=== PATIENT | male | born 1955 | race Caucasian/White ===

== ENCOUNTER 2021-05-22 12:28 | Inpatient (IN) | payer OTHER, MEDICAID ==
[~2021-05-22] VITALS: Ht 177.8 cm; Wt 81.0 kg
[2021-05-22 13:18] LABS: Basophils # (auto) 0 10 ^3/uL (0-0.2); Basophils % (auto) 0.2 % (0.0-2.0); Eosinophils # (auto) 0.1 10 ^3/uL (0-0.8); Lymphocytes # (auto) 1.1 10 ^3/uL (0.4-5.4); Lymphocytes % (auto) 11.5 % (10.0-50.0); Monocytes # (auto) 1.4 10 ^3/uL (0-1.3)
[2021-05-22 13:19] LABS: Eosinophils % (auto) 0.8 % (0.0-7.0); Hematocrit 40.9 % (41.0-53.0); Hemoglobin 14.1 g/dL (13.5-17.5); Mean Corpuscular Hemoglobin 33.5 pg (28.0-32.0); Mean Corpuscular Hgb Conc. 34.4 g/dL (32.0-36.0); Mean Corpuscular Volume 97.5 fL (80.0-100.0); Monocytes % (auto) 14.4 % (0.0-12.0); Neutrophils # (auto) 7.3 10 ^3/uL (1.6-8.6); Neutrophils % (auto) 73.1 % (37.0-80.0); Nucleated Red Blood Cells % 0.1 %; Red Blood Cells 4.19 10^6/uL (4.5-5.90); Red Cell Distribution Width 13.9 % (11.8-14.3); White Blood Cell 9.9 10^3/uL (4.4-10.8)
[2021-05-22 13:41] LABS: BUN/Creatinine Ratio 8.6; Bilirubin, Total 0.3 mg/dL (0.2-1.0); Calcium 9.1 mg/dL (8.5-10.1); Potassium 3.7 mmol/L (3.5-5.1); Total Protein 8.6 g/dL (6.4-8.2)
[2021-05-22] MEDS ORDERED: ONDANSETRON HCL 4 MG/2 ML VIAL IV PRN (15:15)
[2021-05-22] MEDS ORDERED: NITROGLYCERIN 0.4 MG SL TAB SL PRN (15:15)
[2021-05-22] MEDS ORDERED: HYDROcodone-ACET 5/325MG TAB PO PRN (15:15)
[2021-05-22] MEDS ORDERED: ACETAMINOPHEN 500 MG TAB PO PRN (15:15)
[2021-05-22] MEDS ORDERED: MORPHINE SULFATE INJECTION 2 MG/ML SYRG IV PRN ×2 (15:15)
[2021-05-22] MEDS ORDERED: metroNIDAZOLE 500MG/100ML 100 ML IV ONE (15:30)
[2021-05-22] MEDS: SODIUM CHLORIDE 0.9% 1,000 ML IV SCH (15:31)
[2021-05-22] MEDS: VANCOMYCIN HCL 125MG/5ML ORAL SOL PO SCH ×2 (18:00→22:33)
[2021-05-22 19:12] LABS: Urine Amorphous Crystal MANY /hpf (None Seen); Urine Bacteria FEW /hpf (None Seen); Urine Blood Negative /uL (Negative); Urine Mucus FEW (None Seen); Urine Specific Gravity 1.024 (1.001-1.035); Urine WBC 41 /hpf (0 - 3)
[2021-05-22] MEDS: metroNIDAZOLE 500MG/100ML 100 ML IV SCH (22:32)
[2021-05-22 22:46] VITALS: BP 110/68
[2021-05-23 05:01] VITALS: BP 128/73
[2021-05-23] MEDS: SODIUM CHLORIDE 0.9% 1,000 ML IV SCH ×2 (05:24→17:55)
[2021-05-23 05:51] LABS: Basophils # (auto) 0 10 ^3/uL (0-0.2); Eosinophils # (auto) 0.3 10 ^3/uL (0-0.8); Lymphocytes # (auto) 0.9 10 ^3/uL (0.4-5.4); Lymphocytes % (auto) 9.5 % (10.0-50.0); Monocytes # (auto) 1.2 10 ^3/uL (0-1.3); Monocytes % (auto) 12.7 % (0.0-12.0)
[2021-05-23 06:00] LABS: Basophils % (auto) 0.4 % (0.0-2.0); Eosinophils % (auto) 3.2 % (0.0-7.0); Hematocrit 39.3 % (41.0-53.0); Hemoglobin 13.3 g/dL (13.5-17.5); Mean Corpuscular Hemoglobin 33.3 pg (28.0-32.0); Mean Corpuscular Hgb Conc. 33.8 g/dL (32.0-36.0); Mean Corpuscular Volume 98.4 fL (80.0-100.0); Neutrophils % (auto) 74.2 % (37.0-80.0); Red Cell Distribution Width 13.8 % (11.8-14.3); White Blood Cell 9.4 10^3/uL (4.4-10.8)
[2021-05-23] MEDS: VANCOMYCIN HCL 125MG/5ML ORAL SOL PO SCH ×2 (06:15→11:59)
[2021-05-23] MEDS: metroNIDAZOLE 500MG/100ML 100 ML IV SCH ×3 (06:15→22:00)
[2021-05-23 06:18] LABS: Potassium 3.7 mmol/L (3.5-5.1)
[2021-05-23 06:28] LABS: Albumin 2.7 g/dL (3.4-5.0); BUN/Creatinine Ratio 14.4; Bilirubin, Total 0.2 mg/dL (0.2-1.0); Calcium 8.8 mg/dL (8.5-10.1); Total Protein 7.2 g/dL (6.4-8.2)
[2021-05-23 08:57] VITALS: BP 136/75
[2021-05-23] MEDS ORDERED: levoFLOXacin 500 MG TAB PO ONE (11:15)
[2021-05-23 12:50] VITALS: BP 125/63
[2021-05-23 16:35] VITALS: BP 117/68
[2021-05-23 22:00] VITALS: BP 102/59
[2021-05-24 05:00] VITALS: BP 109/64
[2021-05-24] MEDS: metroNIDAZOLE 500MG/100ML 100 ML IV SCH ×2 (05:51→14:11)
[2021-05-24] MEDS: SODIUM CHLORIDE 0.9% 1,000 ML IV SCH (05:55)
[2021-05-24 08:35] VITALS: BP 101/68
[2021-05-24] MEDS ORDERED: LOPERAMIDE HCL 2 MG CAP PO PRN (09:45)
[2021-05-24] MEDS ORDERED: LOPERAMIDE HCL 2 MG CAP PO ONE (09:45)
[2021-05-24] MEDS ORDERED: LOPERAMIDE 1 mg/7.5ml ORAL soln PO ONE (10:00)
[2021-05-24 10:50] LABS: INR 1.08 (0.9-1.15); Partial Thromboplastin Time 28.2 sec (23.0-31.2)
[2021-05-24] MEDS: levoFLOXacin 500 MG TAB PO SCH (11:03)
[2021-05-24 12:45] VITALS: BP 102/65
[2021-05-24] MEDS ORDERED: GOLYTELY 4L KIT PO ONE (14:15)
[2021-05-24 16:35] VITALS: BP 100/64
[2021-05-24 22:00] VITALS: BP 136/65
[2021-05-24] MEDS: metroNIDAZOLE 500 MG TAB PO SCH (22:35)
[2021-05-25 05:00] VITALS: BP 114/67
[2021-05-25] MEDS: metroNIDAZOLE 500 MG TAB PO SCH ×3 (05:29→23:52)
[2021-05-25] MEDS: SODIUM CHLORIDE 0.9% 1,000 ML IV SCH ×3 (05:29→23:15)
[2021-05-25] MEDS ORDERED: GOLYTELY 4L KIT PO ONE (06:00)
[2021-05-25] MEDS ORDERED: LIDOCAINE VISCOUS 2% 15ML UD ONE (08:11)
[2021-05-25] MEDS ORDERED: SODIUM CHLORIDE LOCK 10 ML ONE (08:11)
[2021-05-25] MEDS ORDERED: diphenhdrAMINE HCL 50 MG/1 ML VL ONE (08:12)
[2021-05-25 08:32] VITALS: BP 126/72
[2021-05-25] MEDS: MIDAZOLAM HCL 5 MG/ML-1ML VIAL ONE ×3 (09:42→09:48)
[2021-05-25] MEDS: fentaNYL CITRATE 100 MCG/2 ML VL ONE ×3 (09:42→09:48)
[2021-05-25] MEDS: levoFLOXacin 500 MG TAB PO SCH (10:35)
[2021-05-25 12:35] VITALS: BP 131/74
[2021-05-25 16:30] VITALS: BP 118/65
[2021-05-25 22:16] VITALS: BP 127/68
[2021-05-26 05:03] VITALS: BP 116/68
[2021-05-26] MEDS: metroNIDAZOLE 500 MG TAB PO SCH (07:03)
[2021-05-26 08:31] VITALS: BP 110/67
[2021-05-26] MEDS: levoFLOXacin 500 MG TAB PO SCH (10:39)
[2021-05-26 10:40] VITALS: BP 110/64
== END 2021-05-26 11:30 | disposition home or self-care (01) | DRG 385 ==
LOC: ER 12:28 → OVERFLOW 15:12 → CENTRAL 21:00
PROVIDERS: ADMIT Nurse Practitioner Acute Care; ATTEND Family Medicine
PROC: 0DBE8ZX Excision of Large Intestine, Via Natural or Artificial Opening Endoscopic, Diagnostic (ICD-10-PCS; principal; 2021-05-25 09:30)
DX: K51.011 Ulcerative (chronic) pancolitis with rectal bleeding (principal); K57.91 Diverticulosis of intestine, part unspecified, without perforation or abscess with bleeding; E44.0 Moderate protein-calorie malnutrition; E87.1 Hypo-osmolality and hyponatremia; N39.0 Urinary tract infection, site not specified; Z68.1 Body mass index [BMI] 19.9 or less, adult; K52.9 Noninfective gastroenteritis and colitis, unspecified; E86.0 Dehydration; Z20.822 Contact with and (suspected) exposure to COVID-19; Z80.0 Family history of malignant neoplasm of digestive organs
CPT/HCPCS: 36415; 45380; 71045; 74176; 80053; 81001; 82270; 84154; 85025; 85610; 85730; 87086; 87426; 87493; 93005; 96365; 96366; G0378; J2250; J3490

== ENCOUNTER 2021-10-14 02:26 | Inpatient (IN) | payer OTHER, MEDICAID ==
[~2021-10-14] VITALS: Ht 177.8 cm; Wt 64.9 kg
[2021-10-14 04:46] LABS: Basophils # (auto) 0 10 ^3/uL (0-0.2); Eosinophils # (auto) 0.1 10 ^3/uL (0-0.8); Hemoglobin 15.7 g/dL (13.5-17.5); Lymphocytes # (auto) 0.6 10 ^3/uL (0.4-5.4); Monocytes # (auto) 0.9 10 ^3/uL (0-1.3); Neutrophils # (auto) 9.9 10 ^3/uL (1.6-8.6); White Blood Cell 11.5 10^3/uL (4.4-10.8)
[2021-10-14 04:49] LABS: Basophils % (auto) 0.3 % (0.0-2.0); Eosinophils % (auto) 0.6 % (0.0-7.0); Hematocrit 47.4 % (41.0-53.0); Lymphocytes % (auto) 5.1 % (10.0-50.0); Mean Corpuscular Hemoglobin 32.1 pg (28.0-32.0); Mean Corpuscular Hgb Conc. 33.1 g/dL (32.0-36.0); Red Blood Cells 4.89 10^6/uL (4.5-5.90); Red Cell Distribution Width 15.3 % (11.8-14.3)
[2021-10-14 05:15] LABS: Potassium 3.8 mmol/L (3.5-5.1)
[2021-10-14 05:22] LABS: Albumin 3.6 g/dL (3.4-5.0); BUN/Creatinine Ratio 8.3; Bilirubin, Total 0.4 mg/dL (0.2-1.0); Calcium 9.5 mg/dL (8.5-10.1)
[2021-10-14] MEDS ORDERED: metroNIDAZOLE 500MG/100ML 100 ML IV ONE ×2 (08:45→17:45)
[2021-10-14] MEDS ORDERED: cefTRIAXone 1GM/50ML D5W 50 ML IV ONE ×2 (08:45→17:45)
[2021-10-14 16:08] LABS: Urine Bacteria NONE SEEN /hpf (None Seen); Urine Blood TRACE /uL (Negative); Urine Hyaline Cast FEW /lpf (0 - 2); Urine Mucus FEW (None Seen); Urine Specific Gravity 1.017 (1.001-1.035); Urine WBC 21 /hpf (0 - 3)
[2021-10-14] MEDS: SODIUM CHLORIDE 0.9% 1,000 ML IV SCH (17:45)
[2021-10-14] MEDS ORDERED: SODIUM CHLORIDE 0.9% 1,000 ML IV ONE ×2 (17:45)
[2021-10-14] MEDS ORDERED: ONDANSETRON HCL 4 MG/2 ML VIAL IV PRN (17:45)
[2021-10-14] MEDS ORDERED: NITROGLYCERIN 0.4 MG SL TAB SL PRN ×2 (17:45→20:00)
[2021-10-14] MEDS ORDERED: TEMAZEPAM 15 MG CAP PO PRN (17:45)
[2021-10-14] MEDS ORDERED: MORPHINE SULFATE INJECTION 2 MG/ML SYRG IV PRN ×3 (17:45→20:00)
[2021-10-14] MEDS ORDERED: TAMSULOSIN HYDROCHLORIDE 0.4 MG CAP PO ONE (17:45)
[2021-10-14] MEDS ORDERED: PROMETHAZINE HCL 25 MG/ML 1ML IV PRN (20:00)
[2021-10-14] MEDS ORDERED: MANNITOL 20% SOLN 100 gm/500ml 300 ML IV ONE (20:00)
[2021-10-14] MEDS ORDERED: OXYCODONE W/ ACETAMINOPHEN 5/325MG TABLET PO PRN (20:00)
[2021-10-14] MEDS ORDERED: ASCORBIC ACID 500 MG TAB PO SCH (22:00)
[2021-10-14] MEDS: PIPERACILLIN-TAZOB 3.375GM 100 ML IV SCH (22:11)
[2021-10-15] MEDS: SODIUM CHLORIDE 0.9% 1,000 ML IV SCH ×2 (02:49→10:25)
[2021-10-15] MEDS: PIPERACILLIN-TAZOB 3.375GM 100 ML IV SCH ×2 (06:29→14:00)
[2021-10-15 07:32] LABS: Basophils # (auto) 0 10 ^3/uL (0-0.2); Basophils % (auto) 0.5 % (0.0-2.0); Eosinophils # (auto) 0.2 10 ^3/uL (0-0.8); Eosinophils % (auto) 2.6 % (0.0-7.0); Hematocrit 44.1 % (41.0-53.0); Hemoglobin 15.1 g/dL (13.5-17.5); Lymphocytes # (auto) 0.8 10 ^3/uL (0.4-5.4); Lymphocytes % (auto) 10.6 % (10.0-50.0); Mean Corpuscular Hemoglobin 32.9 pg (28.0-32.0); Mean Corpuscular Hgb Conc. 34.2 g/dL (32.0-36.0); Mean Corpuscular Volume 96.2 fL (80.0-100.0); Monocytes # (auto) 1.1 10 ^3/uL (0-1.3); Neutrophils # (auto) 5.3 10 ^3/uL (1.6-8.6); Neutrophils % (auto) 71.3 % (37.0-80.0); Nucleated Red Blood Cells % 0.1 %; Red Blood Cells 4.58 10^6/uL (4.5-5.90); Red Cell Distribution Width 15.8 % (11.8-14.3); White Blood Cell 7.4 10^3/uL (4.4-10.8)
[2021-10-15 07:40] LABS: INR 1.08 (0.9-1.15); Partial Thromboplastin Time 30.5 sec (23.6-33.0)
[2021-10-15 07:43] LABS: Potassium 3.9 mmol/L (3.5-5.1)
[2021-10-15] MEDS ORDERED: MANNITOL FTV 25% 12.5 GM/50 ML 50 ML IV ONE (07:45)
[2021-10-15 07:51] LABS: BUN/Creatinine Ratio 9.1; Bilirubin, Total 0.4 mg/dL (0.2-1.0); Calcium 9.1 mg/dL (8.5-10.1); Total Protein 7.6 g/dL (6.4-8.2)
[2021-10-15 09:20] VITALS: BP 110/70
[2021-10-15] MEDS ORDERED: FUROSEMIDE 20 MG/2 ML VIAL IV SCH (10:00)
[2021-10-15] MEDS ORDERED: ZINC SULFATE 220mg CAP or TAB PO SCH (10:00)
[2021-10-15] MEDS ORDERED: SULFPOW XX (10:43)
[2021-10-15] MEDS ORDERED: ADAL40IN SC (10:43)
[2021-10-15 12:00] VITALS: BP 124/75
[2021-10-15] MEDS ORDERED: AMOX500T86 PO (13:29)
[2021-10-15] MEDS ORDERED: IBUP600T27 PO (13:29)
[2021-10-15] MEDS ORDERED: TAMSULOSIN HYDROCHLORIDE 0.4 MG CAP PO SCH (18:00)
== END 2021-10-15 14:57 | disposition home or self-care (01) | DRG 694 ==
LOC: ER 02:26 → OVERFLOW 17:35 → WEST WING 10-15 08:53
PROVIDERS: ADMIT Emergency Medicine; ATTEND Internal Medicine
DX: N13.2 Hydronephrosis with renal and ureteral calculous obstruction (principal); K52.9 Noninfective gastroenteritis and colitis, unspecified; Z20.822 Contact with and (suspected) exposure to COVID-19; Z87.442 Personal history of urinary calculi; Z87.891 Personal history of nicotine dependence
CPT/HCPCS: 36415; 74018; 74176; 80053; 81001; 83605; 83690; 84484; 85025; 85610; 85730; 87040; 87426; 93005; 96361; 96365; 96366; G0378; J0696; J2543

== ENCOUNTER 2021-11-13 14:38 | Inpatient (IN) | payer OTHER, MEDICAID ==
[~2021-11-13] VITALS: Ht 177.8 cm; Wt 67.1 kg
[~2021-11-13 14:38] MED LIST: ADAL40IN SC; AMOX500T86 PO; IBUP600T27 PO; SULFPOW XX
[2021-11-13 16:15] LABS: Basophils # (auto) 0 10 ^3/uL (0-0.2); Basophils % (auto) 0.2 % (0.0-2.0); Eosinophils # (auto) 0 10 ^3/uL (0-0.8); Eosinophils % (auto) 0.2 % (0.0-7.0); Hematocrit 42.2 % (41.0-53.0); Hemoglobin 14.3 g/dL (13.5-17.5); Lymphocytes # (auto) 0.8 10 ^3/uL (0.4-5.4); Lymphocytes % (auto) 7.6 % (10.0-50.0); Mean Corpuscular Volume 94.2 fL (80.0-100.0); Monocytes # (auto) 1.5 10 ^3/uL (0-1.3); Monocytes % (auto) 13.9 % (0.0-12.0); Neutrophils # (auto) 8.5 10 ^3/uL (1.6-8.6); Neutrophils % (auto) 78.1 % (37.0-80.0); Nucleated Red Blood Cells % 0.2 %; Red Blood Cells 4.48 10^6/uL (4.5-5.90); Red Cell Distribution Width 14.7 % (11.8-14.3); White Blood Cell 10.9 10^3/uL (4.4-10.8)
[2021-11-13 16:33] LABS: Albumin 2.9 g/dL (3.4-5.0); Calcium 9.2 mg/dL (8.5-10.1); Potassium 4.1 mmol/L (3.5-5.1)
[2021-11-13 16:38] LABS: BUN/Creatinine Ratio 12.6; Bilirubin, Total 0.2 mg/dL (0.2-1.0); Total Protein 8.1 g/dL (6.4-8.2)
[2021-11-13 16:44] LABS: Magnesium 2.2 mg/dL (1.6-2.6)
[2021-11-13] MEDS ORDERED: metroNIDAZOLE 500MG/100ML 100 ML IV ONE (18:45)
[2021-11-13] MEDS ORDERED: SODIUM CHLORIDE 0.9% 500 ML IV ONE (18:45)
[2021-11-14] MEDS ORDERED: MORPHINE SULFATE 4 MG/ML SYR/VIAL IV PRN (02:15)
[2021-11-14] MEDS ORDERED: CHOLECALCIFEROL (VITD3) 2,000 UNIT CAP/TAB PO ONE (02:15)
[2021-11-14] MEDS ORDERED: MORPHINE SULFATE INJECTION 2 MG/ML SYRG IV PRN (02:15)
[2021-11-14] MEDS ORDERED: NITROGLYCERIN 0.4 MG SL TAB SL PRN (02:15)
[2021-11-14] MEDS ORDERED: ONDANSETRON HCL 4 MG/2 ML VIAL IV PRN (02:15)
[2021-11-14] MEDS: SODIUM CHLORIDE 0.9% 1,000 ML IV SCH ×3 (04:00→22:15)
[2021-11-14 05:30] VITALS: BP 137/78
[2021-11-14] MEDS: PIPERACILLIN-TAZOB 3.375GM 100 ML IV SCH ×2 (06:20→12:00)
[2021-11-14 09:00] VITALS: BP 125/66
[2021-11-14] MEDS: ZINC SULFATE 220mg CAP or TAB PO SCH (10:00)
[2021-11-14] MEDS: ASCORBIC ACID 500 MG TAB PO SCH (10:00)
[2021-11-14 12:48] LABS: Basophils # (auto) 0 10 ^3/uL (0-0.2); Calcium 8.3 mg/dL (8.5-10.1); Eosinophils # (auto) 0 10 ^3/uL (0-0.8); Eosinophils % (auto) 0.1 % (0.0-7.0); Lymphocytes # (auto) 0.8 10 ^3/uL (0.4-5.4); Monocytes # (auto) 1.3 10 ^3/uL (0-1.3); Potassium 4.1 mmol/L (3.5-5.1)
[2021-11-14 12:50] LABS: Basophils % (auto) 0.2 % (0.0-2.0); Hematocrit 35.5 % (41.0-53.0); Lymphocytes % (auto) 9.1 % (10.0-50.0); Mean Corpuscular Hemoglobin 32.2 pg (28.0-32.0); Mean Corpuscular Hgb Conc. 33.8 g/dL (32.0-36.0); Mean Corpuscular Volume 95.3 fL (80.0-100.0); Monocytes % (auto) 14.4 % (0.0-12.0); Neutrophils # (auto) 6.9 10 ^3/uL (1.6-8.6); Neutrophils % (auto) 76.2 % (37.0-80.0); Nucleated Red Blood Cells % 0.1 %; Red Blood Cells 3.73 10^6/uL (4.5-5.90); Red Cell Distribution Width 14.4 % (11.8-14.3)
[2021-11-14 13:00] VITALS: BP 121/65
[2021-11-14] MEDS: methylPREDNISolone SOD SUCC 125 MG/2 ML VL IV SCH (14:45)
[2021-11-14 17:00] VITALS: BP 115/67
[2021-11-14 22:00] VITALS: BP 105/65
[2021-11-14] MEDS ORDERED: levoFLOXacin 500MG 100 ML IV SCH (22:36)
[2021-11-15] MEDS: ASCORBIC ACID 500 MG TAB PO SCH ×2 (00:55→09:00)
[2021-11-15] MEDS: metroNIDAZOLE 500MG/100ML 100 ML IV SCH ×3 (01:26→14:00)
[2021-11-15 05:00] VITALS: BP 94/56
[2021-11-15 09:00] VITALS: BP 92/56
[2021-11-15] MEDS: ZINC SULFATE 220mg CAP or TAB PO SCH (09:00)
[2021-11-15 13:00] VITALS: BP 110/66
[2021-11-15] MEDS: methylPREDNISolone SOD SUCC 125 MG/2 ML VL IV SCH (14:45)
[2021-11-15] MEDS ORDERED: VANC250C4 PO (16:39)
[2021-11-15] MEDS ORDERED: LEVO500T31 PO (16:39)
[2021-11-15] MEDS ORDERED: PRED20TA2 PO (16:39)
[2021-11-15] MEDS ORDERED: METR500T PO (16:39)
[2021-11-15 17:00] VITALS: BP 101/62
[2021-11-15] MEDS ORDERED: VANCOMYCIN HCL 125MG/5ML ORAL SOL PO SCH (18:00)
[2021-11-15 20:48] VITALS: BP 101/62
== END 2021-11-15 21:30 | disposition home health service (06) | DRG 385 ==
LOC: ER 14:38 → OVERFLOW 11-14 02:14 → EAST 11-14 04:43
PROVIDERS: ADMIT Hospitalist; ATTEND Hospitalist
DX: K51.011 Ulcerative (chronic) pancolitis with rectal bleeding (principal); U07.1 COVID-19; A04.72 Enterocolitis due to Clostridium difficile, not specified as recurrent; I25.10 Atherosclerotic heart disease of native coronary artery without angina pectoris
CPT/HCPCS: 36415; 71045; 74176; 80048; 80053; 83690; 83735; 84484; 85025; 85048; 86141; 87045; 87081; 87426; 87427; 87493; 96361; 96365; G0378; J1956; J2543; J3490